=== PATIENT | female | born 1985 | race African-American/Black ===

== ENCOUNTER 2018-11-28 17:40 | Inpatient (IN) | payer BC ==
[~2018-11-28] VITALS: Ht 172.7 cm; Wt 80.7 kg
[~2018-11-28 17:40] MED LIST: PREN-88 PO
[2018-11-28] MEDS ORDERED: DEXT 5%/LR + PITOCIN 20UNITS/L 1,000 ML IV SCH (18:44)
[2018-11-28] MEDS ORDERED: CITRIC ACID/SODIUM CITRATE SOLN 30ML UDC PO NR (19:00)
[2018-11-28] MEDS: LACTATED RINGERS 1,000 ML IV SCH ×2 (19:21→20:00)
[2018-11-28 19:32] LABS: CLARITY URINE CLEAR (CLEAR); COLOR URINE YELLOW (YELLOW); KETONES URINE NEGATIVE (NEGATIVE); LEUKOCYTE ESTERASE URINE NEGATIVE (NEGATIVE); NITRITE URINE NEGATIVE (NEGATIVE); OCCULT BLOOD URINE 2+ (NEGATIVE); PROTEIN URINE NEGATIVE (NEGATIVE); SPECIFIC GRAVITY URINE 1.016 (1.005-1.030)
[2018-11-28 19:34] LABS: BASOPHILS % 0.6 % (0.0-2.0); EOSINOPHILS % 0.9 % (0.0-5.0); HEMATOCRIT. 35.3 % (36.0-48.0); HEMOGLOBIN. 11.5 g/dL (12.0-16.0); LYMPHOCYTES % 37.2 % (20.0-50.0); MEAN CORPUSCULAR HEMOGLOBIN 27.3 pg (28.0-32.0); MEAN CORPUSCULAR VOLUME 83.9 fL (81.0-99.0); MEAN PLATELET VOLUME 8.5 fl (7.4-10.4); MONOCYTES % 9.5 % (2.0-8.0); NEUTROPHILS % 51.8 % (40.0-76.0); PLATELET 245 x1000/uL (130-400); RED BLOOD CELL COUNT 4.21 mill/uL (4.2-5.4); RED CELL DISTRIBUTION WIDTH 15.2 % (11.6-14.6)
[2018-11-28 19:36] LABS: INR 0.9; PROTHROMBIN TIME 9.1 sec (9.1-11.1)
[2018-11-28] MEDS ORDERED: IBUPROFEN 400MG TABLET PO PRN (19:45)
[2018-11-28] MEDS ORDERED: ACETAMINOPHEN WITH CODEINE 300/30MG TABLET PO PRN (19:45)
[2018-11-28] MEDS ORDERED: OXYTOCIN 20 UNITS in LACTATED RINGERS 1,000 ML IV SCH ×2 (19:45→20:30)
[2018-11-28] MEDS ORDERED: PENICILLIN G POTASSIUM 5 MMU in DEXT 5% WATER 100 ML IV NR (20:00)
[2018-11-28 20:07] LABS: *AMPHETAMINES SCREEN URINE NEGATIVE (NEGATIVE); *BARBITURATES SCREEN URINE NEGATIVE (NEGATIVE); *BENZODIAZEPINES SCREEN URINE NEGATIVE (NEGATIVE); *COCAINE SCREEN URINE NEGATIVE (NEGATIVE)
[2018-11-28 20:08] LABS: CANNABINOID URINE SCREEN NEGATIVE (NEGATIVE); METHADONE URINE SCREEN NEGATIVE (NEGATIVE); OPIATES URINE SCREEN NEGATIVE (NEGATIVE); PHENCYCLIDINE URINE SCREEN NEGATIVE (NEGATIVE)
[2018-11-28 20:58] LABS: HEPATITIS B SURFACE ANTIGEN NEGATIVE
[2018-11-29] VITALS (7 sets, daily range): BP systolic 102–117; BP diastolic 57–68
[2018-11-29] MEDS ORDERED: KETOROLAC 30MG/ML VIAL IV PRN (04:15)
[2018-11-29] MEDS: LACTATED RINGERS 1,000 ML IV SCH (07:14)
[2018-11-29 08:07] LABS: BASOPHILS % 0.1 % (0.0-2.0); EOSINOPHILS % 0.1 % (0.0-5.0); HEMATOCRIT. 33.1 % (36.0-48.0); HEMOGLOBIN. 11.1 g/dL (12.0-16.0); LYMPHOCYTES % 17.8 % (20.0-50.0); MEAN CORPUSCULAR HEMOGLOBIN 27.9 pg (28.0-32.0); MEAN CORPUSCULAR VOLUME 83.4 fL (81.0-99.0); MEAN PLATELET VOLUME 8.5 fl (7.4-10.4); MONOCYTES % 7.1 % (2.0-8.0); NEUTROPHILS % 74.9 % (40.0-76.0); PLATELET 219 x1000/uL (130-400); RED BLOOD CELL COUNT 3.97 mill/uL (4.2-5.4)
[2018-11-29] MEDS: DOCUSATE SODIUM 100MG CAPSULE PO SCH (21:18)
[2018-11-30 05:40] VITALS: BP 108/68
[2018-11-30] MEDS: HYDROCODONE/ACETAMINOPHEN 5/325MG TABLET PO PRN ×4 (07:49→23:30)
[2018-11-30 08:15] VITALS: BP 120/75
[2018-11-30 15:22] VITALS: BP 112/72
[2018-11-30] MEDS: DOCUSATE SODIUM 100MG CAPSULE PO SCH ×2 (21:00→21:15)
[2018-12-01] MEDS: HYDROCODONE/ACETAMINOPHEN 5/325MG TABLET PO PRN ×4 (01:07→07:19)
[2018-12-01 08:00] VITALS: BP 119/79
== END 2018-12-01 11:50 | disposition home or self-care (01) | DRG 787 ==
LOC: 8 EST LDRP 17:40 → INTOOBSV 17:40 → OBSVTOIN 17:40 → 8EST 11-29 01:00
PROVIDERS: ADMIT Obstetrics & Gynecology Obstetrics; ATTEND Obstetrics & Gynecology Obstetrics
PROC: 10D00Z1 Extraction of Products of Conception, Low, Open Approach (ICD-10-PCS; principal; 2018-11-28)
DX: O34.211 Maternal care for low transverse scar from previous cesarean delivery (principal); O41.03X0 Oligohydramnios, third trimester, not applicable or unspecified; D25.9 Leiomyoma of uterus, unspecified; O34.13 Maternal care for benign tumor of corpus uteri, third trimester; O77.0 Labor and delivery complicated by meconium in amniotic fluid; Z37.0 Single live birth; Z3A.38 38 weeks gestation of pregnancy
CPT/HCPCS: 36415; 76815; 76818; 80305; 86592; 86703; 86762; 86850; 86900; 87340; 88307; J1885; J2540; J2590; J7060; J7120; A4315